=== PATIENT | male | born 1995 | race Two or more races ===

== ENCOUNTER 2018-01-21 07:59 | Emergency (ER) | payer SELFPAY ==
[~2018-01-21] VITALS: Ht 190.5 cm; Wt 59.0 kg
[2018-01-21 08:02] VITALS: BP 124/78
[2018-01-21] MEDS ORDERED: AMOX/CLAVULANATE 875 MG TABLET ONE (08:57)
[2018-01-21] MEDS ORDERED: DEXAMETHASONE 4 MG TABLET ONE (08:57)
[2018-01-21] MEDS ORDERED: AMOX/CLAVULANATE 875 MG TABLET PO ONE (09:00)
[2018-01-21] MEDS ORDERED: DEXAMETHASONE 1 MG TABLET PO ONE (09:00)
--- NOTE | 2018-01-21 09:02 | NUR ---
For discharge. ACI given Home ambulatory Stable
== END 2018-01-21 09:03 | disposition home or self-care (01) ==
LOC: ER 08:00
DX: J03.90 Acute tonsillitis, unspecified (principal)
CPT/HCPCS: 99283; A4606; J8540; Z7610

== ENCOUNTER 2024-11-03 08:04 | Emergency (ER) | payer MEDICAID ==
[~2024-11-03] VITALS: Ht 152.4 cm; Wt 65.8 kg
[2024-11-03] MEDS ORDERED: CIPR-262 PO (08:59)
[2024-11-03] MEDS ORDERED: METR500T PO (08:59)
[2024-11-03 09:05] VITALS: BP 118/81; TEMP 98.6; O2SAT 98
== END 2024-11-03 09:15 | disposition home or self-care (01) ==
LOC: ER 08:09
DX: R19.7 Diarrhea, unspecified (principal); R10.9 Unspecified abdominal pain